=== PATIENT | male | born 1990 | race Caucasian/White ===

== ENCOUNTER → 2018-05-14 | Outpatient (CLI) | payer OTHER ==
[2018-05-14 16:59] LABS: HEMATOCRIT 46.8 % (42.0-52.0); HEMOGLOBIN 16.2 g/dl (14.0-18.0); MEAN CORPUSCULAR HGB 30.1 pg (27.0-31.0); MEAN CORPUSCULAR HGB CONC 34.6 g/dl (33.0-37.0); MEAN PLATELET VOLUME 10.5 fl (9.6-12.3); RED BLOOD COUNT 5.38 10*6/uL (4.50-5.90); RED CELL DISTRI WIDTH 11.9 % (0-14.5); WHITE BLOOD COUNT 13.1 10*3/uL (4.8-10.8)
[2018-05-14 17:16] LABS: ALBUMIN 4.3 gm/dl (3.1-4.5); ALKALINE PHOSPHATASE 84 U/L (45-117); BUN 21 mg/dl (7-24); CHLORIDE 103 mmol/L (98-107); CHOLESTEROL 197 mg/dL (<200); POTASSIUM 4.1 mmol/L (3.5-5.1); SGOT/AST 16 IU/L (3-35); SGPT/ALT 29 U/L (12-78); SODIUM 139 mmol/L (136-145); TOTAL PROTEIN 8.7 gm/dL (6.4-8.2); TRIGLYCERIDES 190 mg/dl (<150); VLDL CHOLESTEROL 38 mg/dL (6-40)
[2018-05-14 17:17] LABS: HDL CHOLESTEROL 44 mg/dl (40-60); LDL CHOLESTEROL 115 mg/dL (9-159)
== END | disposition home or self-care (01) ==
LOC: LAB 15:53
PROVIDERS: Family Medicine
DX: Z01.812 Encounter for preprocedural laboratory examination (principal); E78.00 Pure hypercholesterolemia, unspecified

== ENCOUNTER → 2018-05-18 | Outpatient (CLI) | payer OTHER ==
[2018-05-19 07:06] LABS: TOTAL PROTEIN, SERUM 7.4 g/dL (6.0-8.5)
[2018-05-19 16:27] LABS: A/G RATIO 1.1 (0.7-1.7); ALBUMIN 3.8 g/dL (2.9-4.4); ALPHA-1-GLOBULIN 0.3 g/dL (0.0-0.4); ALPHA-2-GLOBULIN 0.8 g/dL (0.4-1.0); BETA GLOBULIN 1.2 g/dL (0.7-1.3); GAMMA GLOBULIN 1.4 g/dL (0.4-1.8); GLOBULIN, TOTAL 3.6 g/dL (2.2-3.9); M-SPIKE Not Observed g/dL (Not Observed)
[2018-05-21 15:07] LABS: ALBUMIN, URINE 32.2 % (.); ALPHA-1-GLOBULIN, URINE 4.5 % (.); ALPHA-2-GLOBULIN, URINE 17.8 % (.); BETA GLOBULIN, URINE 25.3 % (.); GAMMA GLOBULIN, URINE 20.1 % (.); M-SPIKE, % Not Observed % (Not Observed); PROTEIN,TOTAL - URINE RANDOM 10.5 mg/dL (Not Estab.)
== END | disposition home or self-care (01) ==
LOC: LAB 14:56
PROVIDERS: Family Medicine
DX: E88.09 Other disorders of plasma-protein metabolism, not elsewhere classified (principal)